=== PATIENT | female | born 1990 | race African-American/Black ===

== ENCOUNTER 2018-03-15 18:08 | Emergency (ER) | payer OTHER ==
[2018-03-15 19:01] LABS: Bilirubin Negative (Negative); Blood, Urine Negative (Negative); Clarity CLEAR (Clear); Glucose, Urine (Dipstick) Negative (Negative); Leukocyte Trace (Negative); Nitrite Negative (Negative); Protein, Urine (Dipstick) Negative (Neg-Trace); Specific Gravity, Urine 1.013 (1.002-1.036); pH, Urine 6.5 (5.0-9.0)
[2018-03-15 19:04] LABS: Bacteria/HPF Rare-Few HPF (None Seen); Hyaline Casts/LPF 0-3 HYALINE CAST LPF (0-3 Hyaline); Pathc Cast-AUWi Flag 0.29 (0-2.49); RBC/HPF 0-3 HPF (0-3); WBC/HPF 0-3 HPF (0-3)
[2018-03-15 19:07] LABS: Pregnancy Test - Urine (BHCG) Negative (Negative); Pregu Control Background? CLEAR/WHITE (CLR/WHITE); Pregu Control Bar Appear? YES (CONTROL BAR); Specific Gravity 1.013 (1.002-1.036)
[2018-03-17 00:56] LABS: Chlamydia by PCR Not Detected (NotDetected); GC by PCR Not Detected (NotDetected)
== END 2018-03-15 21:25 | disposition home or self-care (01) ==
LOC: ERS 18:08
DX: N76.0 Acute vaginitis (principal); F17.210 Nicotine dependence, cigarettes, uncomplicated
CPT/HCPCS: 81003; 81015; 81025; 87480; 87491; 87510; 87591; 87660; 99406

== ENCOUNTER 2018-06-24 19:14 | Emergency (ER) | payer OTHER ==
[2018-06-24] MEDS ORDERED: Ibuprofen 800 MG TAB ONE (20:36)
--- NOTE | 2018-06-24 20:37 | RAD ---
TWO VIEWS RIGHT ELBOW: 06/24/18 HISTORY: Pain. FINDINGS: No joint effusion. No fracture or malalignment. IMPRESSION: Unremarkable two views right elbow. POS: [facility]
[2018-06-24 20:45] LABS: Bilirubin Small (Negative); Blood, Urine Negative (Negative); Clarity CLEAR (Clear); Glucose, Urine (Dipstick) Negative (Negative); Leukocyte Small (Negative); Nitrite Negative (Negative); Protein, Urine (Dipstick) Negative (Neg-Trace); Specific Gravity, Urine 1.023 (1.002-1.036)
[2018-06-24 20:47] LABS: Bacteria/HPF Rare-Few HPF (None Seen); Hyaline Casts/LPF 4-6 HYALINE CAST LPF (0-3 Hyaline); Pathc Cast-AUWi Flag 0.87 (0-2.49); Pregnancy Test - Urine (BHCG) Negative (Negative); Pregu Control Background? CLEAR/WHITE (CLR/WHITE); Pregu Control Bar Appear? YES (CONTROL BAR); RBC/HPF 0-3 HPF (0-3); Specific Gravity 1.023 (1.002-1.036)
[2018-06-27 20:02] LABS: Chlamydia by PCR Not Detected (NotDetected); GC by PCR Not Detected (NotDetected)
== END 2018-06-24 21:32 | disposition home or self-care (01) ==
LOC: ERS 19:14
DX: M25.521 Pain in right elbow (principal); N76.0 Acute vaginitis; B96.89 Other specified bacterial agents as the cause of diseases classified elsewhere; F31.9 Bipolar disorder, unspecified; F17.210 Nicotine dependence, cigarettes, uncomplicated; X50.3XXA Overexertion from repetitive movements, initial encounter; Y92.79 Other farm location as the place of occurrence of the external cause; B19.10 Unspecified viral hepatitis B without hepatic coma
CPT/HCPCS: 81003; 81015; 81025; 87480; 87491; 87510; 87591; 87660

== ENCOUNTER 2018-08-18 06:50 | Emergency (ER) | payer OTHER ==
[2018-08-18 07:17] LABS: Bilirubin Negative (Negative); Blood, Urine Negative (Negative); Clarity TURBID (Clear); Glucose, Urine (Dipstick) Negative (Negative); Leukocyte Trace (Negative); Nitrite Negative (Negative); Protein, Urine (Dipstick) 30 mg/dL (Neg-Trace); Specific Gravity, Urine 1.028 (1.002-1.036); Urobilinogen 0.2 mg/dL (0.2-1.0); pH, Urine 5.5 (5.0-9.0)
[2018-08-18 07:20] LABS: Squamous Epithelial 21-50 HPF (0-3)
[2018-08-18 07:22] LABS: Pathc Cast-AUWi Flag 13.33 (0-2.49); Sperm-AUWi Flag 5108.3 (0-9.9); Yeast-AUWi Flag 30.4 (0-25.0)
[2018-08-18 07:41] LABS: Bacteria/HPF 1+ HPF (None Seen); RBC/HPF 0-3 HPF (0-3)
[2018-08-18 07:42] LABS: Sperm/HPF 4+ HPF (None Seen); Yeast-All Forms None Seen HPF (None Seen)
[2018-08-18 07:43] LABS: Hyaline Casts/LPF 0-3 HYALINE CAST LPF (0-3 Hyaline)
[2018-08-18 08:22] LABS: Specific Gravity 1.028 (1.002-1.036)
[2018-08-18 08:27] LABS: Pregnancy Test - Urine (BHCG) Negative (Negative); Pregu Control Background? CLEAR/WHITE (CLR/WHITE); Pregu Control Bar Appear? YES (CONTROL BAR)
[2018-08-18] MEDS ORDERED: metroNIDAZOLE 250 MG TAB ONE (08:57)
[2018-08-19 23:16] LABS: Chlamydia by PCR Not Detected (NotDetected); GC by PCR Not Detected (NotDetected)
== END 2018-08-18 09:02 | disposition home or self-care (01) ==
LOC: ERS 06:50
DX: R30.0 Dysuria (principal); F31.9 Bipolar disorder, unspecified; F17.210 Nicotine dependence, cigarettes, uncomplicated
CPT/HCPCS: 81003; 81015; 81025; 87077; 87086; 87186; 87480; 87491; 87510; 87591; 87660; 99283

== ENCOUNTER 2018-10-18 11:47 | Emergency (ER) | payer OTHER ==
[2018-10-18 12:57] LABS: Bilirubin Small (Negative); Blood, Urine Negative (Negative); Clarity CLOUDY (Clear); Glucose, Urine (Dipstick) Negative (Negative); Leukocyte Small (Negative); Nitrite Positive (Negative); Protein, Urine (Dipstick) Trace mg/dL (Neg-Trace); Specific Gravity, Urine 1.033 (1.002-1.036); pH, Urine 5.5 (5.0-9.0)
[2018-10-18 12:58] LABS: Pregnancy Test - Urine (BHCG) Negative (Negative); Pregu Control Background? CLEAR/WHITE (CLR/WHITE); Pregu Control Bar Appear? YES (CONTROL BAR); Specific Gravity 1.033 (1.002-1.036)
[2018-10-18 13:00] LABS: Bacteria/HPF 3+ HPF (None Seen); Squamous Epithelial 21-50 HPF (0-3)
[2018-10-18 13:01] LABS: Pathc Cast-AUWi Flag 5.66 (0-2.49)
[2018-10-18 13:19] LABS: Hyaline Casts/LPF 0-3 HYALINE CAST LPF (0-3 Hyaline); Other Casts/LPF None Seen LPF (0-3 Hyaline)
[2018-10-18 13:20] LABS: Transitional Epithelial 0-3 HPF (0-3)
[2018-10-18] MEDS ORDERED: Lidocaine 1% PF 5 ML VIAL ONE (13:24)
[2018-10-18] MEDS ORDERED: cefTRIAXone\\ROCEPHIN 250 MG VIAL ONE (13:24)
[2018-10-18] MEDS ORDERED: Azithromycin 250 MG TAB ONE (13:24)
[2018-10-22 01:52] LABS: Chlamydia by PCR Not Detected (NotDetected); GC by PCR Not Detected (NotDetected)
== END 2018-10-18 13:49 | disposition home or self-care (01) ==
LOC: ERS 11:47
DX: N39.0 Urinary tract infection, site not specified (principal); B18.1 Chronic viral hepatitis B without delta-agent; F31.9 Bipolar disorder, unspecified; F17.210 Nicotine dependence, cigarettes, uncomplicated
CPT/HCPCS: 81003; 81015; 81025; 87086; 87480; 87491; 87510; 87591; 87660; 96372; J0696; J2001

== ENCOUNTER 2019-06-05 12:41 | Emergency (ER) | payer OTHER ==
--- NOTE | 2019-06-05 14:41 | RAD ---
Radiograph left knee 4 views: DATE: 06/05/2019 HISTORY: 29-year-old female with traumatic pain of left knee FINDINGS: No joint effusion or edema in Hoffa's fat pad. There appears to be edema along the lateral collateral ligament. No fracture, dislocation, permeative lesion, osteolytic lesion, osteoblastic lesion, or periostitis. Joint spaces are maintained without erosions or osteophytes. IMPRESSION: 1. Questionable edema along the lateral collateral ligament. 2. Otherwise normal.
[2019-06-05 15:39] LABS: Bacteria/HPF None Seen HPF (None Seen); Bilirubin Negative (Negative); Blood, Urine Negative (Negative); Clarity Clear (Clear); Glucose, Urine (Dipstick) Normal (Negative); Leukocyte 75 Leu/uL (Negative); Nitrite Negative (Negative); Pregnancy Test - Urine (BHCG) Negative (Negative); Pregu Control Background? CLEAR/WHITE (CLR/WHITE); Pregu Control Bar Appear? YES (CONTROL BAR); Protein, Urine (Dipstick) Negative (Neg-Trace); RBC/HPF 0-3 HPF (0-3); Specific Gravity 1.016 (1.002-1.036); Squamous Epithelial 0-3 HPF (0-3); Urobilinogen Normal mg/dL (Less than 2)
[2019-06-05] MEDS ORDERED: Ketorolac Tromethamine 30 MG/ML VIAL ONE (15:45)
[2019-06-05] MEDS ORDERED: Azithromycin 250 MG TAB ONE (16:03)
[2019-06-05] MEDS ORDERED: cefTRIAXone\\ROCEPHIN 250 MG VIAL ONE (16:03)
[2019-06-05] MEDS ORDERED: Lidocaine 1% PF 5 ML VIAL ONE (16:08)
[2019-06-08 01:09] LABS: Chlamydia by PCR Not Detected (NotDetected); GC by PCR Not Detected (NotDetected)
== END 2019-06-05 16:23 | disposition home or self-care (01) ==
LOC: ERS 12:41
DX: N89.8 Other specified noninflammatory disorders of vagina (principal); M25.562 Pain in left knee; F31.9 Bipolar disorder, unspecified; F17.210 Nicotine dependence, cigarettes, uncomplicated
CPT/HCPCS: 81003; 81015; 81025; 87480; 87491; 87510; 87591; 87660; 96372; J0696; J1885; J2001

== ENCOUNTER 2019-06-24 04:30 | Emergency (ER) | payer OTHER ==
[2019-06-24] MEDS ORDERED: Bupivacaine 0.5% 10 ML VIAL ONE ×2 (04:56→05:11)
== END 2019-06-24 05:30 | disposition home or self-care (01) ==
LOC: ERS 04:30
DX: K03.81 Cracked tooth (principal); F31.9 Bipolar disorder, unspecified; F17.210 Nicotine dependence, cigarettes, uncomplicated
CPT/HCPCS: 64400; J3490

== ENCOUNTER 2019-09-19 00:13 | Emergency (ER) | payer OTHER ==
[2019-09-19] MEDS ORDERED: Ketorolac Tromethamine 60 MG/2 ML VIAL ONE (00:35)
== END 2019-09-19 01:10 | disposition home or self-care (01) ==
LOC: ERS 00:13
DX: K03.81 Cracked tooth (principal); F17.210 Nicotine dependence, cigarettes, uncomplicated; F31.9 Bipolar disorder, unspecified
CPT/HCPCS: 96372; 99282; J1885

== ENCOUNTER 2020-05-04 18:08 | Emergency (ER) | payer OTHER ==
[2020-05-04 18:52] LABS: #Basophils 0.1 thou/uL (0.0-0.2); #Eosinphils 0.3 thou/uL (0.0-0.7); #Lymphocytes 1.8 thou/uL (1.20-3.40); #Monocytes 0.6 thou/uL (0.11-0.59); #Neutrophils 4.4 thou/uL (1.40-6.50); %Eosinophils 4.3 % (0.0-10.0); %Lymphocytes 24.7 % (21.0-51.0); Hemoglobin 11.7 g/dL (12.0-16.0); Mean Corpuscular HGB CONC 33.4 g/dL (32.0-36.0); Mean Corpuscular Hemoglobin 30.3 pg (27.0-31.0); Mean Corpuscular Volume 90.5 fL (78.0-98.0); Mean Platelet Volume 6.6 fL (7.4-10.4); Platelet Count 515 thou/uL (130-400); RBC Distribution Width 14.2 % (11.5-14.5); Red Blood Cell (RBC) Count 3.88 mill/uL (4.20-5.40); White Blood Cell (WBC) Count 7.2 thou/uL (4.8-10.8)
[2020-05-04 19:11] LABS: ALT (SGPT) 11 U/L (8-55); AST (SGOT) 16 U/L (5-34); Albumin 4.2 g/dL (3.5-5.0); Alkaline Phosphatase 83 U/L (40-110); Anion Gap 10 mmol/L (10-20); BUN (Urea Nitrogen) 12 mg/dL (7.0-18.7); Bilirubin, Total 0.3 mg/dL (0.2-1.2); Calc. Creatinine Clearance 0 mL/min (70-130); Calcium 9.4 mg/dL (7.8-10.44); Carbon Dioxide 28 mmol/L (22-29); Chloride 105 mmol/L (98-107); Estimated GFR-MDRD 84; Globulin 3.8 g/dL (2.4-3.5); Glucose 123 mg/dL (70-105); Potassium 3.6 mmol/L (3.5-5.1); Sodium 139 mmol/L (136-145)
[2020-05-04 19:20] LABS: Pregnancy Test - Urine (BHCG) Negative (Negative); Pregu Control Background? CLEAR/WHITE (CLR/WHITE); Pregu Control Bar Appear? YES (CONTROL BAR); Specific Gravity 1.019 (1.002-1.036)
[2020-05-04 19:22] LABS: Bilirubin Negative (Negative); Blood, Urine 2+ (Negative); Clarity Extra Turbid (Clear); Glucose, Urine (Dipstick) Normal (Negative); Leukocyte 500 Leu/uL (Negative); Nitrite Negative (Negative); Protein, Urine (Dipstick) 50 mg/dL (Neg-Trace); Transitional Epithelial 0-3 HPF (None Seen); WBC/HPF Greater than 50 HPF (0-3)
[2020-05-04 19:33] LABS: Bacteria/HPF 1+ HPF (None Seen)
== END 2020-05-04 20:00 | disposition home or self-care (01) ==
LOC: ERS 18:08
DX: N39.0 Urinary tract infection, site not specified (principal); F17.210 Nicotine dependence, cigarettes, uncomplicated
CPT/HCPCS: 36415; 80053; 81003; 81015; 81025; 85025; 99283

== ENCOUNTER 2020-09-23 16:57 | Emergency (ER) | payer OTHER ==
[2020-09-23] MEDS ORDERED: Ketorolac Tromethamine 30 MG/ML VIAL ONE (17:14)
--- NOTE | 2020-09-23 18:44 | RAD ---
LEFT HUMERUS TWO VIEWS: History: Humeral pain FINDINGS: There is an anterior shoulder dislocation present. No associated fracture. IMPRESSION: Anterior shoulder dislocation. POS: OFF
[2020-09-23] MEDS ORDERED: Fentanyl 100 MCG/2 ML VIAL ONE (19:26)
[2020-09-23] MEDS ORDERED: Propofol 500 MG/50 ML VIAL ONE (19:27)
[2020-09-23] MEDS ORDERED: Propofol 1,000 MG/100 ML VIAL IV ONE (19:28)
--- NOTE | 2020-09-23 20:27 | RAD ---
LEFT SHOULDER THREE VIEWS: History: Left shoulder pain. FINDINGS: There are no signs of fracture or dislocation. No other bony findings. IMPRESSION: Negative left shoulder. POS: OFF
== END 2020-09-23 20:33 | disposition home or self-care (01) ==
LOC: EEVIPCON 16:57 → ERS 16:57
DX: S42.292A Other displaced fracture of upper end of left humerus, initial encounter for closed fracture (principal); S43.005A Unspecified dislocation of left shoulder joint, initial encounter; F17.210 Nicotine dependence, cigarettes, uncomplicated; X58.XXXA Exposure to other specified factors, initial encounter
CPT/HCPCS: 23650; 96372; 99156; J1885; J2704; J3010

== ENCOUNTER 2020-09-29 20:25 | Emergency (ER) | payer OTHER ==
[2020-09-29 21:11] LABS: Bilirubin Negative (Negative); Blood, Urine Negative (Negative); Clarity Turbid (Clear); Glucose, Urine (Dipstick) Normal (Negative); Ketone, Urine Negative (Negative); Leukocyte 75 Leu/uL (Negative); Nitrite Negative (Negative); Protein, Urine (Dipstick) Negative (Neg-Trace); RBC/HPF 0-3 HPF (0-3); Specific Gravity, Urine 1.016 (1.002-1.036); Urobilinogen Normal mg/dL (Less than 2)
[2020-09-29 21:17] LABS: Bacteria/HPF 2+ HPF (None Seen)
[2020-09-29 21:18] LABS: Trichomonas/HPF 1+ HPF (None Seen)
[2020-09-29] MEDS ORDERED: Azithromycin 250 MG TAB ONE (22:27)
[2020-09-29] MEDS ORDERED: cefTRIAXone\\ROCEPHIN 250 MG VIAL ONE (22:27)
[2020-09-29] MEDS ORDERED: Lidocaine 1% PF 5 ML VIAL ONE (22:28)
[2020-09-29 22:47] LABS: Pregnancy Test - Urine (BHCG) Negative (Negative); Pregu Control Background? CLEAR/WHITE (CLR/WHITE); Pregu Control Bar Appear? YES (CONTROL BAR); Specific Gravity 1.016 (1.002-1.036)
[2020-10-02 20:10] LABS: Chlamydia by PCR Not Detected (NotDetected); GC by PCR Not Detected (NotDetected)
== END 2020-09-29 22:44 | disposition home or self-care (01) ==
LOC: ERS 20:25
DX: N89.8 Other specified noninflammatory disorders of vagina (principal); R30.0 Dysuria; F17.210 Nicotine dependence, cigarettes, uncomplicated
CPT/HCPCS: 81003; 81015; 81025; 87480; 87491; 87510; 87591; 87660; 96372; 99283; J0696

== ENCOUNTER 2020-11-11 19:38 | Emergency (ER) | payer OTHER ==
[2020-11-11 21:31] LABS: Bilirubin Negative (Negative); Blood, Urine Negative (Negative); Clarity Turbid (Clear); Glucose, Urine (Dipstick) Normal (Negative); Ketone, Urine Negative (Negative); Leukocyte Negative Leu/uL (Negative); Nitrite Negative (Negative); Protein, Urine (Dipstick) Negative (Neg-Trace); Specific Gravity, Urine 1.013 (1.002-1.036); Urobilinogen Normal mg/dL (Less than 2); pH, Urine 7.5 (5.0-9.0)
[2020-11-11 21:32] LABS: Pregnancy Test - Urine (BHCG) Negative (Negative); Pregu Control Background? CLEAR/WHITE (CLR/WHITE); Pregu Control Bar Appear? YES (CONTROL BAR); Specific Gravity 1.013 (1.002-1.036)
== END 2020-11-11 21:40 | disposition home or self-care (01) ==
LOC: ERS 19:38
DX: R35.0 Frequency of micturition (principal); R30.0 Dysuria; F17.210 Nicotine dependence, cigarettes, uncomplicated
CPT/HCPCS: 81003; 81025; 99283

== ENCOUNTER 2021-09-04 21:41 | Emergency (ER) | payer OTHER | END 2021-09-04 22:34 | disposition home or self-care (01) | LOC: ERS 21:41 | DX: J06.9 Acute upper respiratory infection, unspecified (principal); R53.81 Other malaise; Z20.822 Contact with and (suspected) exposure to COVID-19; F17.210 Nicotine dependence, cigarettes, uncomplicated | CPT/HCPCS: 99283 ==

== ENCOUNTER 2021-09-05 19:48 | Emergency (ER) | payer OTHER ==
[2021-09-06 08:33] LABS: SARS-CoV-2 PCR by NAA Not Detected (NotDetected)
== END 2021-09-05 20:58 | disposition home or self-care (01) ==
LOC: ERS 19:48
DX: R09.81 Nasal congestion (principal); R05.9 Cough, unspecified; R68.83 Chills (without fever); Z20.822 Contact with and (suspected) exposure to COVID-19
CPT/HCPCS: 99283; U0003; U0005

== ENCOUNTER 2022-08-29 20:22 | Emergency (ER) | payer OTHER ==
[2022-08-29 20:46] LABS: Bacteria/HPF 3+ HPF (None Seen); Bilirubin Negative (Negative); Blood, Urine Trace (Negative); Clarity Turbid (Clear); Glucose, Urine (Dipstick) Normal (Negative); Ketone, Urine Negative (Negative); Leukocyte 500 Leu/uL (Negative); Mucous/LPF Rare LPF (<2+); Nitrite Negative (Negative); Protein, Urine (Dipstick) Negative (Neg-Trace); Renal Epithelial 0-3 HPF (None Seen); Transitional Epithelial 0-3 HPF (None Seen); Urobilinogen Normal mg/dL (Less than 2); WBC/HPF Greater than 50 HPF (0-3)
[2022-08-29 21:25] LABS: Pregnancy Test - Urine (BHCG) Negative (Negative); Pregu Control Background? CLEAR/WHITE (CLR/WHITE); Pregu Control Bar Appear? YES (CONTROL BAR)
== END 2022-08-29 21:35 | disposition home or self-care (01) ==
LOC: ERS 20:22
DX: N39.0 Urinary tract infection, site not specified (principal)
CPT/HCPCS: 81003; 81015; 81025; 87077; 87086; 99283

== ENCOUNTER 2022-10-03 18:59 | Emergency (ER) | payer OTHER | END 2022-10-03 20:16 | disposition home or self-care (01) | LOC: ERS 18:59 | DX: L02.412 Cutaneous abscess of left axilla (principal); F17.210 Nicotine dependence, cigarettes, uncomplicated | CPT/HCPCS: 10060 ==

== ENCOUNTER 2023-01-09 11:38 | Emergency (ER) | payer OTHER | END 2023-01-09 14:58 | disposition left against medical advice (07) | LOC: ERS 11:38 | DX: Z53.21 Procedure and treatment not carried out due to patient leaving prior to being seen by health care provider (principal) ==

== ENCOUNTER 2023-02-05 11:14 | Emergency (ER) | payer OTHER ==
[2023-02-05] MEDS ORDERED: Albuterol 2.5 MG/0.5 ML NEB ONE (13:17)
[2023-02-05] MEDS ORDERED: Albuterol 200 PUFF (6.7GM INHALER) ONE (13:18)
== END 2023-02-05 13:30 | disposition home or self-care (01) ==
LOC: ERS 11:14
DX: B34.9 Viral infection, unspecified (principal); Z20.822 Contact with and (suspected) exposure to COVID-19
CPT/HCPCS: 71045; 87804; J7611; U0003; U0005

== ENCOUNTER 2023-02-20 08:47 | Emergency (ER) | payer OTHER ==
[2023-02-20 09:48] LABS: Pregnancy Test - Urine (BHCG) Negative (Negative); Pregu Control Background? CLEAR/WHITE (CLR/WHITE); Pregu Control Bar Appear? YES (CONTROL BAR); Specific Gravity 1.014 (1.002-1.036)
[2023-02-20 09:50] LABS: Bilirubin Negative (Negative); Blood, Urine Negative (Negative); Clarity Clear (Clear); Glucose, Urine (Dipstick) Normal (Negative); Ketone, Urine Negative (Negative); Leukocyte Negative Leu/uL (Negative); Nitrite Negative (Negative); Protein, Urine (Dipstick) Negative (Neg-Trace); Specific Gravity, Urine 1.014 (1.002-1.036); Urobilinogen Normal mg/dL (Less than 2); pH, Urine 6.5 (5.0-9.0)
[2023-02-21 12:10] LABS: Chlamydia by PCR *Indeterminate (NotDetected); GC by PCR *Indeterminate (NotDetected)
== END 2023-02-20 10:46 | disposition home or self-care (01) ==
LOC: ERS 08:47
DX: N76.0 Acute vaginitis (principal); F17.210 Nicotine dependence, cigarettes, uncomplicated
CPT/HCPCS: 81003; 81025; 87480; 87491; 87510; 87591; 87660; 99283

== ENCOUNTER 2023-07-13 19:49 | Emergency (ER) | payer OTHER ==
[2023-07-13 21:07] LABS: Bacteria/HPF None Seen HPF (None Seen); Bilirubin Negative (Negative); Blood, Urine 1+ (Negative); CAUTI Indications for Culture < 2yrs of age; Clarity Clear (Clear); Glucose, Urine (Dipstick) Normal (Negative); Ketone, Urine Negative (Negative); Leukocyte Negative Leu/uL (Negative); Nitrite Negative (Negative); Protein, Urine (Dipstick) Negative (Neg-Trace); RBC/HPF 0-3 HPF (0-3); Specific Gravity, Urine 1.005 (1.002-1.036); Urobilinogen Normal mg/dL (Less than 2); WBC/HPF 0-3 HPF (0-3)
[2023-07-13 21:09] LABS: Urine Culture Reflex Yes Yes
[2023-07-14 00:03] LABS: HIV (1/2) Antibody/Antigen Non-Reactive (NonReactive)
[2023-07-14 12:25] LABS: Syphilis Antibody Nonreactive (Nonreactive); Syphilis Antibody Index 0.07 S/CO (<1.00 Non-Reactive)
[2023-07-14 17:59] LABS: GC by PCR, Vaginal Swab *Indeterminate (NotDetected)
[2023-07-14 18:00] LABS: Chlamydia by PCR, Vaginal Swab *Indeterminate (NotDetected)
== END 2023-07-14 00:14 | disposition home or self-care (01) ==
LOC: ERS 19:49
DX: N76.0 Acute vaginitis (principal); F17.210 Nicotine dependence, cigarettes, uncomplicated
CPT/HCPCS: 36415; 81001; 86780; 87086; 87389; 87480; 87491; 87510; 87591; 87660; 99283

== ENCOUNTER 2023-08-02 09:09 | Emergency (ER) | payer OTHER ==
[2023-08-02 09:55] LABS: #Monocytes 0.5 thou/uL (0.11-0.59); #Neutrophils 4.9 thou/uL (1.40-6.50); %Basophils 0.4 % (0.0-1.0); %Eosinophils 0.5 % (0.0-10.0); %Lymphocytes 26.3 % (21.0-51.0); %Monocytes 6.8 % (0.0-10.0); %Neutrophils 65.7 % (42.0-75.0); Hematocrit 37.4 % (36.0-47.0); Hemoglobin 12.3 g/dL (12.0-16.0); Mean Corpuscular HGB CONC 32.9 g/dL (32.0-36.0); Mean Corpuscular Hemoglobin 30.4 pg (27.0-31.0); Mean Corpuscular Volume 92.6 fl (78.0-98.0); Mean Platelet Volume 8.3 fL (7.4-10.4); Platelet Count 482 10x3/uL (130-400); RBC Distribution Width 13.3 % (11.5-14.5); Red Blood Cell (RBC) Count 4.04 mill/uL (4.20-5.40); White Blood Cell (WBC) Count 7.5 10x3/uL (4.8-10.8)
[2023-08-02 09:58] LABS: Pregnancy Test - Urine (BHCG) Negative (Negative); Pregu Control Background? CLEAR/WHITE (CLR/WHITE); Pregu Control Bar Appear? YES (CONTROL BAR); Specific Gravity 1.014 (1.002-1.036)
[2023-08-02 10:03] LABS: Bacteria/HPF None Seen HPF (None Seen); Bilirubin Negative (Negative); Blood, Urine Negative (Negative); CAUTI Indications for Culture Pelvic or flank pain; Clarity Clear (Clear); Glucose, Urine (Dipstick) Normal (Negative); Ketone, Urine Negative (Negative); Leukocyte Negative Leu/uL (Negative); Nitrite Negative (Negative); Protein, Urine (Dipstick) Negative (Neg-Trace); RBC/HPF None Seen HPF (0-3); Specific Gravity, Urine 1.014 (1.002-1.036); Squamous Epithelial 0-3 HPF (0-3); Urobilinogen Normal mg/dL (Less than 2); WBC/HPF 0-3 HPF (0-3)
[2023-08-02 10:05] LABS: Urine Culture Reflex No No
[2023-08-02 10:16] LABS: ALT (SGPT) 14 U/L (8-55); AST (SGOT) 15 U/L (5-34); Albumin 4.5 g/dL (3.5-5.0); Alkaline Phosphatase 80 U/L (40-110); Anion Gap 12 mmol/L (10-20); BUN (Urea Nitrogen) 6 mg/dL (7.0-18.7); Bilirubin, Total 0.2 mg/dL (0.2-1.2); Calc. Creatinine Clearance 0 mL/min (70-130); Calcium 9.5 mg/dL (7.8-10.44); Carbon Dioxide 24 mmol/L (22-29); Chloride 105 mmol/L (98-107); Estimated GFR 118; Globulin 3.9 g/dL (2.4-3.5); Glucose 94 mg/dL (70-105); Lipase 8 U/L (8-78); Protein, Total 8.4 g/dL (6.0-8.3); Sodium 137 mmol/L (136-145)
[2023-08-02] MEDS ORDERED: Iopamidol-370 76% 500 ML MDV (1 ML CHARGE) ONE (11:49)
== END 2023-08-02 11:35 | disposition home or self-care (01) ==
LOC: ERS 09:09
DX: K59.00 Constipation, unspecified (principal); R16.0 Hepatomegaly, not elsewhere classified; F17.210 Nicotine dependence, cigarettes, uncomplicated
CPT/HCPCS: 74177; 80053; 81001; 81025; 83690; 85025; Q9967

== ENCOUNTER 2023-08-07 15:53 | Emergency (ER) | payer OTHER | END 2023-08-07 18:16 | disposition left against medical advice (07) | LOC: ERS 15:53 | DX: Z53.21 Procedure and treatment not carried out due to patient leaving prior to being seen by health care provider (principal) ==

== ENCOUNTER 2023-08-31 20:33 | Emergency (ER) | payer OTHER | END 2023-08-31 22:26 | disposition home or self-care (01) | LOC: ERS 20:33 | DX: G89.29 Other chronic pain (principal); M25.561 Pain in right knee | CPT/HCPCS: 99283 ==

== ENCOUNTER 2024-01-24 04:59 | Emergency (ER) | payer OTHER ==
[2024-01-24] MEDS ORDERED: Acetaminophen 325 MG TAB ONE (05:41)
== END 2024-01-24 05:44 | disposition home or self-care (01) ==
LOC: ERS 04:59
DX: M54.6 Pain in thoracic spine (principal)
CPT/HCPCS: 99283

== ENCOUNTER 2025-08-11 19:18 | Emergency (ER) | payer BC, OTHER | END 2025-08-11 20:04 | disposition home or self-care (01) | LOC: ERS 19:18 | DX: B35.4 Tinea corporis (principal); F17.290 Nicotine dependence, other tobacco product, uncomplicated | CPT/HCPCS: 99282 ==

== ENCOUNTER 2025-08-27 23:09 | Emergency (ER) | payer BC, MEDICAID | END 2025-08-28 00:58 | disposition left against medical advice (07) | LOC: ERS 23:09 | DX: R07.2 Precordial pain (principal); R05.9 Cough, unspecified; F17.290 Nicotine dependence, other tobacco product, uncomplicated | CPT/HCPCS: 71045 ==